=== PATIENT | male | born 1965 | race Hispanic/Latino ===

== ENCOUNTER 2017-06-20 14:33 | Emergency (ER) | payer OTHER ==
[2017-06-20 14:43] VITALS: BP 148/108; PULSE 64; RESP 16; TEMP 97; O2SAT 98
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
[2017-06-20 16:01] LABS: HEMATOCRIT 50.7 % (35.0-51.0); MEAN CORPUSCULAR HEMOGLOBIN 31.1 pg (27.0-31.0); MEAN CORPUSCULAR HGB CONC 34.6 g/dL (33.0-37.0); RED CELL DISTRIBUTION WIDTH 14.5 % (11.5-14.5); WHITE BLOOD COUNT 11.1 K/uL (4.8-10.8)
[2017-06-20 16:09] LABS: BLOOD UREA NITROGEN 22 mg/dl (9-20); CALCIUM 9.2 mg/dL (8.4-10.2); CARBON DIOXIDE 27 mmol/L (22-30); CHLORIDE 102 mmol/L (98-107); GFR AFRICAN-AMERICAN > 60; GLUCOSE,RANDOM 86 mg/dL (75-110); POTASSIUM 3.6 MMOL/L (3.6-5.0); SODIUM 138 mmol/l (132-148)
[2017-06-20] MEDS ORDERED: Sodium Chloride 0.9% 1,000 ML IV STA (16:54)
--- NOTE | 2017-06-20 17:42 | CT ---
PROCEDURE: CT HEAD WITHOUT CONTRAST. HISTORY: headache COMPARISON: None available. TECHNIQUE: Axial computed tomography images were obtained through the head/brain without intravenous contrast. Coronal and sagittal reconstructed images. Radiation dose: Total exam DLP = 0.90 0.91 mGy-cm. This CT exam was performed using one or more of the following dose reduction techniques: Automated exposure control, adjustment of the mA and/or kV according to patient size, and/or use of iterative reconstruction technique. FINDINGS: HEMORRHAGE: No intracranial hemorrhage. BRAIN: No mass effect or edema. No atrophy or chronic microvascular ischemic changes. VENTRICLES: Unremarkable. No hydrocephalus. CALVARIUM: Unremarkable. PARANASAL SINUSES: Unremarkable as visualized. No significant inflammatory changes. MASTOID AIR CELLS: Unremarkable as visualized. No inflammatory changes. OTHER FINDINGS: None. IMPRESSION: No acute intracranial abnormalities. No significant findings to account for the clinical presentation.
--- NOTE | 2017-06-20 17:50 | ED PDOC ---
- Laboratory Results Result Diagrams: 06/20/17 15:52 06/20/17 15:52 - ECG O2 Sat by Pulse Oximetry: 98 Pulse Ox Interpretation: Normal - Progress ED Course And Treament: pt sx markedly improved. ct head negative. repepat neuro exam by me nml. likely cluster tee. advise close f/u with neurology, pmd and family practice. all of pt's question were answered and pt agree's with plan. pt agree's wtih plan and leaves ambulatory and in good spirits. Re-evaluation Time: 17:48 Condition: Improved Disposition Counseled Patient/Family Regarding: Studies Performed, Diagnosis, Need For Followup, Rx Given - Clinical Impression Clinical Impression: Acute headache - POA Present On Arrival: None - Disposition Referrals: [facility] [place] [Outside] (2 to 3 days) Bandar Hoover MD [Medical Doctor] - (2 to 3 days) Disposition: Routine/Home Disposition Time: 17:50 Condition: GOOD Prescriptions: Naproxen 500 mg PO BID PRN #30 tab PRN Reason: Pain, Moderate (4-7) Instructions: Acute Headache (ED) Forms: [email or web address] (Lao)
== END 2017-06-20 18:38 | disposition home or self-care (01) ==
LOC: H.ER 14:33
DX: R51 Headache (principal); I10 Essential (primary) hypertension
CPT/HCPCS: 70450; 80048; 85027; 96374; 96375; 99284; J1885; J2765; J7040